=== PATIENT | female | born 1985 | race Caucasian/White ===

== ENCOUNTER 2018-01-18 05:48 | Outpatient (CLI) | payer BC ==
[~2018-01-18] VITALS: Ht 165.1 cm; Wt 89.4 kg
== END 2018-01-18 12:29 ==
LOC: PREOP 05:48
PROVIDERS: ATTEND Obstetrics & Gynecology
DX: Z01.818 Encounter for other preprocedural examination (principal); R10.2 Pelvic and perineal pain; D64.9 Anemia, unspecified

== ENCOUNTER 2018-01-22 10:58 | Day surgery (SDC) | payer BC ==
[~2018-01-22] VITALS: Ht 165.1 cm; Wt 89.4 kg
[2018-01-22] MEDS ORDERED: BUP/EPI 0.5% 1:200,000 (SENSORCAINE) 30 ML VIAL ONE (11:27)
[2018-01-22 11:30] VITALS: BP 136/78
[2018-01-22 11:42] LABS: BASOPHILS # (AUTO) 0.1 10^3/uL (0.0-0.1); BASOPHILS % (AUTO) 1 % (0-10); EOSINOPHILS # (AUTO) 0.2 10^3/uL (0.0-0.3); EOSINOPHILS % (AUTO) 1 % (0-10); HEMATOCRIT 42 % (35-52); HEMOGLOBIN 14.4 G/DL (11.5-16.0); LYMPHOCYTES # (AUTO) 3.9 X 10^3 (1.0-4.0); LYMPHOCYTES % (AUTO) 34 % (12-44); MEAN CORPUSCULAR HEMOGLOBIN 31 PG (25-34); MEAN CORPUSCULAR HGB CONC 34 G/DL (32-36); MEAN CORPUSCULAR VOLUME 91 FL (80-99); MEAN PLATELET VOLUME 9.6 FL (7.4-10.4); MONOCYTES # (AUTO) 0.7 X 10^3 (0.0-1.0); MONOCYTES % (AUTO) 6 % (0-12); NEUTROPHILS # (AUTO) 6.6 X 10^3 (1.8-7.8); NEUTROPHILS % (AUTO) 58 % (42-75); PLATELET COUNT 394 10^3/uL (130-400); RED BLOOD COUNT 4.67 10^6/uL (4.35-5.85); RED CELL DISTRIBUTION WIDTH 12.3 % (10.0-14.5); WHITE BLOOD COUNT 11.3 10^3/uL (4.3-11.0)
[2018-01-22] MEDS ORDERED: SEVOFLURANE (ULTANE) 15 ML INHAL SOLN ONE ×2 (11:45→13:56)
[2018-01-22] MEDS ORDERED: ceFAZolin INJECTION 1,000 MG in NS (IVPB) 100 ML IV ONE (11:45)
[2018-01-22] MEDS ORDERED: ROCURONIUM 10 MG/ML 5 ML SYRINGE IV ONE (11:45)
[2018-01-22] MEDS ORDERED: ONDANSETRON 4 MG/2 ML (SDV) Z0FRAN ONE (11:45)
[2018-01-22] MEDS ORDERED: DEXAMETHASONE 10 MG/ML (DECADRON) 1 ML VIAL ONE ×2 (11:45→13:56)
[2018-01-22] MEDS ORDERED: LIDOCAINE PF 2% 5 ML (XYLOCAINE) VIAL ONE (11:45)
[2018-01-22] MEDS ORDERED: proPOfol 200 MG/20 ML (DIPRIVAN) VIAL IV ONE (11:45)
[2018-01-22] MEDS ORDERED: MIDAZOLAM 2 MG/2 ML (VERSED) VIAL ONE (11:46)
[2018-01-22] MEDS ORDERED: fentaNYL INJECTION 100 MCG/2 ML AMP ONE (11:46)
--- NOTE | 2018-01-22 12:25 | Progress Note-Pre Operative ---
Pre-Operative Progress Note H&P Reviewed The H&P was reviewed, patient examined and no changes noted. Date Seen by Provider: Jan 22, 2018 Time Seen by Provider: 12:25 Date H&P Reviewed: Jan 22, 2018 Time H&P Reviewed: 12:25 Pre-Operative Diagnosis: Dysfunctional uterine bleeding/pelvic mass/ intrauterine mass LORETTA RIVERA MD Jan 22, 2018 12:25 pm
[2018-01-22] MEDS ORDERED: D5 LR IV SOLUTION 1,000 ML IV SCH (12:26)
--- NOTE | 2018-01-22 12:26 | Progress Note-Post Operative ---
Post-Operative Progess Note Surgeon (s)/Welding Equipment Sales Representative (s) Surgeon LORETTA RIVERA MD Welding Equipment Sales Representative: Gladys Mcgee Pre-Operative Diagnosis Dysfunctional uterine bleeding/pelvic mass/intrauterine mass Post-Operative Diagnosis Same with pathology pending Procedure & Operative Findings Date of Procedure 01/22/18 Procedure Performed/Findings Hysteroscopy with directed biopsy and D&C followed by laparoscopic removal of bilateral cystic adnexal masses, adhesio lysis, destruction of endometriosis, ovarian drilling Anesthesia Type GETA Estimated Blood Loss Estimated blood loss (mL): Minimal Specimens/Packing Specimens Removed Directed endometrial biopsy and D&C curettings, left paratubal/paraovarian cyst , right paratubal cyst Packing: None LOERTTA RIVERA MD Jan 22, 2018 12:26
[2018-01-22] MEDS ORDERED: OXYC-465 PO (12:29)
[2018-01-22] MEDS ORDERED: ONDANSETRON 4 MG/2 ML (SDV) Z0FRAN IVP PRN ×2 (12:30→14:00)
[2018-01-22] MEDS ORDERED: KETOROLAC 30 MG/ML VIAL IVP ONE (12:30)
[2018-01-22] MEDS ORDERED: PROMETHAZINE INJ 25 MG/ML (PHENERGAN) AMP IM ONE (12:30)
[2018-01-22] MEDS ORDERED: oxyCODONE/APAP 10/325MG (PERCOCET 10) TABLET PO PRN (12:30)
[2018-01-22] MEDS ORDERED: ESTROGENS CONJ IV 25 MG/5 ML (PREMARIN) VIAL IVP ONE (12:30)
[2018-01-22] MEDS ORDERED: MEPERIDINE (DEMEROL) INJ 100 MG/ML IM ONE (12:30)
--- NOTE | 2018-01-22 12:30 | Discharge Instructions ---
Discharge Instructions Discharge Medications New, Converted or Re-Newed RX: RX on Chart Patient Instructions Patient Instructions: As directed Return to The Hospital For: As directed Activity & Diet Discharge Diet: No Restrictions Activity as Tolerated: No Orders-Post D/C & Referrals Follow Up Appt: Call to make follow up appt. for patient in 1 week for suture removal. Activity: Rest for 24 hours, than as tolerated. Wound Care: May remove Band-Aid tomorrow. Replace as desired. Keep incisions clean and dry. Wash daily with soap and water. Diet: As tolerated-Clear Liquids only if nauseated. Tomorrow, may shower or tub bathe as desired. No driving for 24 hours, no alcoholic beverages for 24 hours, and nothing per vagina (no tampons, douching, or intercourse) for 10 days. Patient to return to the clinic as soon as possible for: Temperature greater than 101F, Severe Pain, Foul discharge from incision or vagina, Excessive Bleeding (more than a period). LORETTA RIVERA MD Jan 22, 2018 12:30 pm
[2018-01-22] MEDS: LACTATED RINGERS 1,000 ML IV PRN ×2 (12:55→14:05)
[2018-01-22] MEDS ORDERED: WATER (STERILE) FOR INJECTION 10 ML ONE (13:31)
[2018-01-22] MEDS ORDERED: morphine INJ 10 MG/ML 1ML (SYR OR VIAL) ONE ×2 (13:32→13:35)
[2018-01-22] MEDS ORDERED: NEOSTIGMINE 1 MG/ML 5 ML SYRINGE ONE (13:42)
[2018-01-22] MEDS ORDERED: GLYCOPYRROLATE 0.2 MG/ML (ROBINUL) 2 ML VIAL ONE (13:42)
[2018-01-22] MEDS ORDERED: MEPERIDINE (DEMEROL) INJ 50 MG/ML IVP PRN (14:00)
[2018-01-22] MEDS: morphine INJ 10 MG/ML 1ML (SYR OR VIAL) IVP PRN ×3 (14:05→14:20)
--- NOTE | 2018-01-22 14:26 | Anesthesia-General Post-Op ---
General Patient Condition Mental Status/LOC: Same as Preop Cardiovascular: Satisfactory Nausea/Vomiting: Absent Respiratory: Satisfactory Pain: Controlled Complications: Absent Post Op Complications Complications None Follow Up Care/Instructions Patient Instructions None needed. Anesthesia/Patient Condition Patient Condition Patient is doing well, no complaints, stable vital signs, no apparent adverse anesthesia problems. No complications reported per nursing. ISRAEL CHAWLA CRNA Jan 22, 2018 14:26
[2018-01-22] MEDS ORDERED: WATER (STERILE) FOR INJ 10 ML BTL IV ONE (14:30)
[2018-01-22 14:55] VITALS: BP 112/64
[2018-01-22 15:25] VITALS: BP 115/65
[2018-01-22 16:32] VITALS: BP 103/64
[2018-01-22 17:32] VITALS: BP 103/64
[2018-01-22 17:34] VITALS: BP 103/64
--- NOTE | 2018-01-22 22:18 | OPERATIVE REPORT ---
DATE OF SERVICE: 01/22/2018 PREOPERATIVE DIAGNOSES: Dysfunctional uterine bleeding, intrauterine mass as well as pelvic mass. POSTOPERATIVE DIAGNOSES: Dysfunctional uterine bleeding, intrauterine mass as well as pelvic mass with likely endometrial polyp and with bilateral paratubal/paraovarian cysts and with endometriosis and adhesiolysis. OPERATIVE PROCEDURE: Hysteroscopy with directed biopsy and D and C as well as bilateral paratubal/paraovarian cystectomies, adhesiolysis, destruction of endometrial implants and ovarian drilling. OPERATIVE DESCRIPTION: With the patient in supine position under satisfactory general anesthesia, she was repositioned in dorsal lithotomy position in the [facility] and prepped and draped in the usual fashion for abdominal and vaginal surgery. Urinary bladder was emptied with a straight catheter. A weighted speculum placed in posterior fornix of vagina, cervix exposed and grasped anteriorly with single tooth tenaculum. Uterus was sounded and dilated to a #9 Hegar dilator. A hysteroscope was introduced and using LR as a distending medium, the endometrial cavity was examined near the right tubal ostium. There was a polypoid appearing mass that was biopsied directly off intact and sent to pathology for permanent section. The endometrial cavity was then sharply curettaged in all 4 quadrants to good uterine cry removing an additional aliquot of tissue. The endometrial cavity was reexamined. There was no significant bleeding. There was no remaining abnormal pathology. The uterine manipulator was placed. The tenaculum and speculum were removed from vagina. A 5 mm incision made in the patient's left upper quadrant, 12 mm incision in the inferior margin of the umbilicus and a 5 mm incision above the symphysis pubis. All three incision sites were infiltrated with 0.25% Marcaine with epinephrine prior to incision. A Veress needle was placed through left upper quadrant incision. Correct placement confirmed with water drop test. The abdomen was insufflated with 2.4 liters of carbon dioxide, then the Veress needle was removed and a 5 mm Optiview laparoscopic port placed. The patient placed in Trendelenburg and a 12 mm port placed through the umbilical incision, a 5 mm port through the supraumbilical incision. The pelvis was examined, there was a large cystic mass between the ovary and the fimbria of the left fallopian tube. The left fallopian tube was stretched somewhat over this mass. The left ovary appeared completely intact and separate from this mass. There was a small cystic mass near the fimbria on the right fallopian tube. There was endometriosis implants in the cul-de-sac and at the junction of the uterosacral ligament with the uterus. The uterus was slightly mottled in appearance consistent with adenomyosis. There were adhesions of omentum to the bladder dome and to the left pelvic brim. Laparoscope was rotated. The appendix was identified. It was a normal vermiform appendix. The attention was turned back to the pelvis. The cystic mass in the left was freed from adhesions to the pelvic brim into the left pelvic side wall. With these adhesions freed and with the bowel adhesions in that area freed as well, taking care to avoid thermal or traumatic injury to bowel and to the adjacent vascular and urologic structures. The peritoneum over the cyst was opened and then the cystic mass was shelled out intact, placed in an Endobag, drained through the mouth of the bag transabdominally avoiding any spill inside and then the collapse mass could be brought out through the umbilical incision. That mass with its fluid was sent to pathology for permanent section. There was no bleeding at that area. The cystic mass on the right fallopian tube was grasped and elevated and resected using cautery and sharp dissection. Care was taken to avoid on both sides any trauma to the fallopian tubes. With cyst removed and labeled appropriately was sent to pathology for permanent section. The cul-de-sac endometriosis implants were touched with electrocautery to destroy them. Attention was then turned to the anterior cul-de-sac. There were a couple small spots that looked like endometriosis anterior to the bladder, these were destroyed with electrocautery. The pelvis was irrigated and examined. Hemostasis was complete. The left tube and ovary were examined again and were completely hemostatic. Both fallopian tubes were normal appearance. There might have been some slight clubbing on the distal ends of the fallopian tube. A second look at the appendix showed a normal vermiform appendix. The procedure at this point was complete and was terminated. The operative instruments were removed under direct vision as were the ports. The abdomen was evacuated and insufflating gas in process of removing the ports. The skin incisions were closed with interrupted suture of 3-0 nylon, the fascia at the infraumbilical incision was closed with [id number] suture of 2-0 Vicryl. The uterine manipulator was drained. Bulb was emptied and the instrument removed from the vagina. Speculum was replaced in the vagina, cervix examined for hemostasis which was complete. Sponge and needle counts were correct at the end of procedure. Estimated blood loss for the procedure was minimal. The patient tolerated the procedure well and was uneventfully awakened from general anesthesia and transferred to recovery room in stable condition with plans for discharge home PAR. Job ID: [id number] DocumentID: [id number] Dictated Date: 01/22/2018 13:43:20 Director Intelligence Analysis Programs Date: 01/22/2018 22:18:01 Dictated By: LORETTA RIVERA MD
== END 2018-01-22 17:30 | disposition home or self-care (01) ==
LOC: SDC 10:58
PROVIDERS: ATTEND Obstetrics & Gynecology
DX: N83.8 Other noninflammatory disorders of ovary, fallopian tube and broad ligament (principal); Z11.2 Encounter for screening for other bacterial diseases
CPT/HCPCS: 36415; 84703; 85025; 87081

== ENCOUNTER → 2018-08-29 | Outpatient (CLI) | payer BC ==
[~2018-08-29] MED LIST: IOHEXOL 300 MG/ML 30 ML (OMNIPAQUE 300) VIAL IV ONE; OXYC-465 PO
--- NOTE | 2018-08-29 15:44 | Diagnostic Imaging Report ---
INDICATION: Dysmenorrhea. FINDINGS: Procedure was performed by Dr. Dias. One minute and 12 seconds of fluoroscopy was utilized. Images demonstrate opacification of the endometrial canal. There appears to be free spill of contrast from the fimbrial ends of both uterine tubes. IMPRESSION: Bilateral uterine tube patency. Dictated by: Dictated on workstation # [id number]
--- NOTE | 2018-08-29 21:21 | OPERATIVE REPORT ---
DATE OF SERVICE: 08/29/2018 OPERATIVE PROCEDURE: HSG catheter placement and instillation of dye. PREOPERATIVE DIAGNOSES: Pelvic pain and endosalpingiosis. POSTOPERATIVE DIAGNOSES: Pelvic pain and endosalpingiosis with uterine septum. PROCEDURE IN DETAIL: With the patient in the supine position on the x-ray table, she was repositioned in the dorsal lithotomy position with frog-leg position. Speculum was placed in the vagina. The cervix was swabbed with Betadine and an HSG catheter was placed having first flushed the catheter with omnipaque. The balloon was then inflated with 2 mL of air. The patient was then replaced supine. The speculum was removed from the vagina. Under continuous fluoroscopy, the omnipaque was instilled. Free spill was seen on the right. Eventually, free spill was seen on the left. The balloon was deflated and the endometrial cavity was visualized by instilling the dye. In the cavity, there was a uterine septum protruding about a third of the way down the endometrial cavity. There were no other filling defects noted. The HSG catheter with the introducer was removed from the vagina. The patient was observed for an appropriate period of time for reaction to the contrast medium and then after 15 minutes was allowed discharge home with followup in clinic. Job ID: [id number] DocumentID: [id number] Dictated Date: 08/29/2018 13:35:11 Staff Therapist Date: 08/29/2018 21:20:20 Dictated By: LORETTA RIVERA MD
== END ==
LOC: RAD 12:26
PROVIDERS: ATTEND Obstetrics & Gynecology
DX: N94.6 Dysmenorrhea, unspecified (principal)
CPT/HCPCS: 58340; 74740

== ENCOUNTER → 2019-07-04 | Outpatient (CLI) | payer BC ==
[~2019-07-04] MED LIST changes: -IOHEXOL 300 MG/ML 30 ML (OMNIPAQUE 300) VIAL IV ONE; +PNV11TAB5 PO
== END ==
LOC: LABNPT 11:20
PROVIDERS: ATTEND Obstetrics & Gynecology
DX: O14.03 Mild to moderate pre-eclampsia, third trimester (principal); Z3A.00 Weeks of gestation of pregnancy not specified
CPT/HCPCS: 82570; 84156

== ENCOUNTER 2019-07-10 09:45 | Outpatient (CLI) | payer BC ==
[2019-07-10 10:43] VITALS: BP 148/77
== END 2019-07-10 10:45 | disposition home or self-care (01) ==
LOC: LDRP 09:45 → WSo 09:45
PROVIDERS: ATTEND Obstetrics & Gynecology
DX: O24.419 Gestational diabetes mellitus in pregnancy, unspecified control (principal)
CPT/HCPCS: 59025

== ENCOUNTER 2019-07-18 10:00 | Inpatient (IN) | payer BC ==
[~2019-07-18] VITALS: Ht 167.6 cm; Wt 104.3 kg
[2019-07-18] VITALS (10 sets, daily range): BP systolic 108–138; BP diastolic 62–96
--- NOTE | 2019-07-18 10:10 | NUR ---
MAMTA WALTER presented to unit via ambulation, accompanied by ,for scheduled primary c/s. Pt. weighed, gowned, voided, and to bed. EFHM and TOCO applied, VS taken. Pt. oriented to bed controls, call light, TV, heat, and A/C controls.
--- NOTE | 2019-07-18 10:20 | NUR ---
admission paperwork filled out. consent signed and placed on chart.
[2019-07-18] MEDS ORDERED: LACTATED RINGERS 1,000 ML IV PRN (10:26)
[2019-07-18] MEDS ORDERED: FAMOTIDINE 20MG/2ML IV (PEPCID) IV ONE (10:30)
[2019-07-18] MEDS ORDERED: CATHETER FLUSH 10 ML SYR IV PRN (10:30)
[2019-07-18] MEDS ORDERED: METOCLOPRAMIDE INJ 10 MG/2 ML (REGLAN) IV ONE (10:30)
[2019-07-18] MEDS ORDERED: metroNIDAZOLE 500MG/100ML IVPB 100 ML IV ONE (10:30)
[2019-07-18] MEDS ORDERED: ceFAZolin 2 GM/50 ML NS 50 ML IV ONE (10:30)
[2019-07-18] MEDS ORDERED: CITRIC ACID/SOB CIT (BICITRA) 30 ML UDC PO ONE (10:30)
--- NOTE | 2019-07-18 10:35 | NUR ---
#30g IV to Lt.hand x1 attempt by this RN. site patent, secured with opsite. LR infusing w/o via gravity. admission labs collected from site prior to IVF's infusing. Addendum: 07/18/19 at 1647 by LINUS CORTEZ RN correction #20g
[2019-07-18 10:51] LABS: BASOPHILS % (AUTO) 0 % (0-10); EOSINOPHILS # (AUTO) 0.1 10^3/uL (0.0-0.3); EOSINOPHILS % (AUTO) 1 % (0-10); HEMATOCRIT 36 % (35-52); HEMOGLOBIN 11.8 G/DL (11.5-16.0); LYMPHOCYTES # (AUTO) 2.5 X 10^3 (1.0-4.0); LYMPHOCYTES % (AUTO) 22 % (12-44); MEAN CORPUSCULAR HEMOGLOBIN 29 PG (25-34); MEAN CORPUSCULAR HGB CONC 33 G/DL (32-36); MEAN CORPUSCULAR VOLUME 88 FL (80-99); MEAN PLATELET VOLUME 10.4 FL (7.4-10.4); MONOCYTES % (AUTO) 9 % (0-12); NEUTROPHILS # (AUTO) 7.8 X 10^3 (1.8-7.8); NEUTROPHILS % (AUTO) 69 % (42-75); PLATELET COUNT 269 10^3/uL (130-400); RED CELL DISTRIBUTION WIDTH 13.4 % (10.0-14.5); WHITE BLOOD COUNT 11.5 10^3/uL (4.3-11.0)
[2019-07-18] MEDS ORDERED: OXYTOCIN/NORMAL SALINE 1,000 ML IV ONE (11:16)
[2019-07-18] MEDS ORDERED: fentaNYL INJECTION 100 MCG/2 ML AMP ONE (11:20)
[2019-07-18] MEDS ORDERED: ROPIVACAINE 5MG/ML 30ML VIAL ONE (11:23)
--- NOTE | 2019-07-18 11:31 | NUR ---
SRNA here to se peter.
--- NOTE | 2019-07-18 11:43 | History & Physical ---
History and Physical Date Seen by Provider: Jul 18, 2019 Time Seen by Provider: 11:38 This patient is a 33-year-old A1 white female with an EDC of 9 1919 patient her now at 38 weeks gestation. Her is complicated by her history of HSV. She has had asymptomatic genital lesions periodically in the past. She did request primary delivery to avoid HSV exposure her is also complicated by gestational diabetes type AI with good blood sugar control. She also has a large for gestational age fetus. Her has been complicated from earlier today with polyhydramnios. She has a high- risk OB physicians to follow her thus far recommended delivery at this point. Patient denies rupture membranes or bleeding. She had a GBS culture performed on June 28, 2019 that was positive Allergies are none Medications are vitamins and Valtrex 500 mg daily since 36 weeks gestation Medical social and surgical histories are per the antepartum record HEENT exam is normal Neck is supple no lymphadenopathy no thyromegaly Heart has regular rhythm and no murmur Chest is clear auscultation bilaterally Abdomen is gravid soft nontender nondistended. Fundal height is well above gestational age pelvic exam is deferred monitor shows frequent uterine irritability with an occasional contraction and a normal heart rate pattern Laboratory Tests Test 07/18/19 10:35 Range/Units White Blood Count 11.5 H 4.3-11.0 10^3/uL Red Blood Count 4.05 L 4.35-5.85 10^6/uL Hemoglobin 11.8 11.5-16.0 G/DL Hematocrit 36 35-52 % Mean Corpuscular Volume 88 80-99 FL Mean Corpuscular Hemoglobin 29 25-34 PG Mean Corpuscular Hemoglobin Concent 33 32-36 G/DL Red Cell Distribution Width 13.4 10.0-14.5 % Platelet Count 269 130-400 10^3/uL Mean Platelet Volume 10.4 7.4-10.4 FL Neutrophils (%) (Auto) 69 42-75 % Lymphocytes (%) (Auto) 22 12-44 % Monocytes (%) (Auto) 9 0-12 % Eosinophils (%) (Auto) 1 0-10 % Basophils (%) (Auto) 0 0-10 % Neutrophils # (Auto) 7.8 1.8-7.8 X 10^3 Lymphocytes # (Auto) 2.5 1.0-4.0 X 10^3 Monocytes # (Auto) 1.0 0.0-1.0 X 10^3 Eosinophils # (Auto) 0.1 0.0-0.3 10^3/uL Basophils # (Auto) 0.0 0.0-0.1 10^3/uL Assessment and plan term at 38 weeks gestation with history of genital herpes, polyhydramnios, macrosomia/LGA, gestational diabetes, and request for primary delivery. I do agree with primary delivery for this patient in regard to the estimated gestational weight as well as her history of genital herpes with asymptomatic lesions. Surgical risk complication recovering follow-up have been fully discussed patient is ready to proceed and accepts those risks. 38 week with history of HSV genitalias gestational diabetes and macrosomia polyhydramnios Allergies and Home Medications Allergies Coded Allergies: No Known Drug Allergies (Unverified , 07/05/19) Home Medications Qkl442/FA/Omega3/Dha/Fish Oil 1 Each Tab.chew, 1 EACH PO DAILY, (Reported) Patient Home Medication List Home Medication List Reviewed: Yes LORETTA RIVERA MD Jul 18, 2019 11:42
[2019-07-18] MEDS ORDERED: OXYC-465 PO (11:45)
[2019-07-18] MEDS ORDERED: DOCU-143 PO (11:45)
[2019-07-18] MEDS ORDERED: IBUP-1780 PO (11:45)
--- NOTE | 2019-07-18 11:45 | Discharge Instructions ---
Discharge Instructions Reconcile Patient Problems Problems Reviewed?: Yes Discharge Medications New, Converted or Re-Newed RX: RX on Chart Patient Instructions Patient Instructions: As directed Return to The Hospital For: As directed Activity & Diet Discharge Diet: No Restrictions Activity as Tolerated: No Orders-Post D/C & Referrals Follow Up Appt: RTC 1 week for incision check. Call to make follow up appt. for patient in 4 weeks. Wound Care: Remove eloina, apply benzoin and steri strips. Activity Per routine post instructions. Please call in RX to patient pharmacy. Diet as tolerated Patient may shower or tub bathe as desired. Continue home meds LORETTA RIVERA MD Jul 18, 2019 11:45
--- NOTE | 2019-07-18 11:50 | NUR ---
pt ambulated to OB c/s room with OR staff @ side. pt stable with no sx's of distress noted.
[2019-07-18] MEDS ORDERED: ONDANSETRON 4 MG/2 ML (SDV) Z0FRAN ONE (12:21)
[2019-07-18] MEDS ORDERED: PHENYLEPHRINE 100 MCG/ML 10 ML (ANESTHESIA) SYR ONE (12:21)
[2019-07-18] MEDS: OXYTOCIN/NORMAL SALINE 500 ML IV SCH ×2 (12:42→18:00)
[2019-07-18] MEDS ORDERED: KETOROLAC 30 MG/ML VIAL ONE (12:46)
[2019-07-18] MEDS ORDERED: D5 LR IV SOLUTION 1,000 ML IV SCH (12:47)
[2019-07-18] MEDS: KETOROLAC 30 MG/ML VIAL IVP PRN ×2 (12:55→18:00)
[2019-07-18] MEDS ORDERED: MEASLES,MUMPS,RUBELLA 1 EA INJ SC ONE (13:00)
[2019-07-18] MEDS ORDERED: TETANUS,DIPTH,PERTUSS P/F (BOOSTRIX) 0.5 ML VIAL IM ONE (13:00)
[2019-07-18] MEDS ORDERED: oxyCODONE/APAP 10/325MG (PERCOCET 10) TABLET PO PRN (13:00)
[2019-07-18] MEDS ORDERED: ONDANSETRON 4 MG/2 ML (SDV) Z0FRAN IVP PRN (13:00)
--- NOTE | 2019-07-18 13:40 | NUR ---
pt transferred to nursery for bonding with infant prior to transfer to [facility].
--- NOTE | 2019-07-18 14:30 | NUR ---
pt transferred to room 313 via bed with staff @ side.
--- NOTE | 2019-07-18 14:52 | OPERATIVE REPORT ---
DATE OF SERVICE: 07/18/2019 PREOPERATIVE DIAGNOSES: Term at 38 weeks gestation with gestational diabetes, history of genital herpes, polyhydramnios and LGA. POSTOPERATIVE DIAGNOSES: Term at 38 weeks gestation with gestational diabetes, history of genital herpes, polyhydramnios and LGA. OPERATIVE PROCEDURE: Primary low transverse delivery of a viable male with Apgars that are pending, weight of 9 pounds, time of 12:18 and a cord blood gas of 7.22. OPERATIVE DESCRIPTION: With the patient in the supine position under satisfactory spinal analgesia, she was prepped and draped in the usual fashion for abdominal surgery. Jeong catheter was placed in the urinary bladder. A Pfannenstiel incision was made through skin with scalpel. The patient's abdomen was entered in the usual manner. Bladder retractor was placed in position. Clean scalpel was used to make a hysterotomy incision transversely across the lower uterine segment. Copious clear fluid was released on hysterotomy. That incision was extended bluntly and then a vigorous viable male infant was delivered via the uterine incision. Odom forceps were applied to facilitate the delivery. The infant was bulb suctioned on delivery of the head and again on completion of the delivery. The umbilical cord was doubly clamped and cut and the infant was passed to the pediatric nurse in attendance for delivery. Cord blood was obtained. The placenta delivered spontaneously Breen. It was quite large. The uterus was then exteriorized, anteriorly wiped clean with a wet laparotomy sponge. Uterine incision then closed with a running locked suture of 2-0 Vicryl. Hemostasis was complete. The uterus was returned to the abdominal cavity. All blood clot and debris removed from the abdominal cavity. With sponge and needle counts correct and hemostasis assured, the anterior parietal peritoneum was closed with running suture of 2-0 Vicryl. Rectus muscles were closed with that suture as well. The rectus fascia was closed with 2-0 Vicryl, subcutaneous tissue with 2-0 Vicryl and the skin was stapled. Sponge and needle counts were correct on completion of the procedure. Estimated blood loss was around 400 mL. The patient tolerated the procedure well and was transferred to the recovery room in stable condition. The infant had been taken stable to the full term nursery under the care of the pediatric nurse. Job ID: [id number] DocumentID: [id number] Dictated Date: 07/18/2019 12:36:59 Second Hand Paper Machine Date: 07/18/2019 14:50:48 Dictated By: LORETTA RIVERA MD
--- NOTE | 2019-07-18 16:01 | NUR ---
FFu/1. moderate rubra noted, no clots expressed. gabby-care offered. v-pad and panties in place.
--- NOTE | 2019-07-18 18:30 | NUR ---
Assisted up to BR. voided 200cc urine. gabby-care offered. v-pad and panties in place. assisted back to bed. visitor here.
--- NOTE | 2019-07-18 19:00 | NUR ---
report given to next shift.
[2019-07-18] MEDS: IBUPROFEN 800 MG (MOTRIN) TAB PO SCH (20:32)
[2019-07-18] MEDS: DOCUSATE SODIUM 100 MG (COLACE) CAP PO SCH (21:02)
[2019-07-18] MEDS ORDERED: D5 LR IV SOLUTION 1,000 ML IV ONE (23:59)
[2019-07-19 00:10] VITALS: BP 148/98
[2019-07-19] MEDS: KETOROLAC 30 MG/ML VIAL IVP PRN ×2 (00:10→07:23)
[2019-07-19] MEDS: IBUPROFEN 800 MG (MOTRIN) TAB PO SCH (02:16)
[2019-07-19 05:00] VITALS: BP 154/93
--- NOTE | 2019-07-19 07:45 | NUR ---
Dr omer to see patient.
--- NOTE | 2019-07-19 07:51 | Progress Note ---
Standard Progress Note Progress Notes/Assess & Plan Date Seen by a Provider: Jul 19, 2019 Time Seen by a Provider: 07:50 Progress/Assessment & Plan This patient is without complaint. Ambulating, voiding, tolerating oral intake well and has good pain control. She denies chest pain, denies shortness of breath, denies nausea vomiting, and denies headache. She does complain of some sinus drainage and sore throat. Vital Signs Date Time Temp Pulse Resp B/P (MAP) Pulse Ox O2 Delivery O2 Flow Rate FiO2 07/19/19 05:00 98.4 102 18 154/93 (113) 98 Room Air 07/19/19 00:10 99.0 103 18 148/98 (115) 98 Room Air 07/18/19 19:45 98.0 99 18 134/86 (102) 96 Room Air 07/18/19 16:30 Room Air 07/18/19 15:40 97.7 98 18 137/85 (102) 99 Room Air 07/18/19 13:30 96.9 18 96 Room Air 07/18/19 13:30 Room Air 07/18/19 13:18 Room Air 07/18/19 13:18 96.6 18 97 Room Air 07/18/19 13:02 Room Air 07/18/19 13:02 97.7 18 96 Room Air 07/18/19 12:42 Room Air 07/18/19 12:42 98.0 18 95 Room Air 07/18/19 11:25 99 18 123/70 (87) Room Air 07/18/19 11:10 99 18 130/80 (97) Room Air 07/18/19 10:40 93 18 110/64 (79) Room Air 07/18/19 10:15 98.5 116 18 138/96 (110) Room Air I & O 07/19/19 07:00 Intake Total 2770 ml Output Total 500 ml Balance 2270 ml Vital signs are stable. Patient is afebrile. Abdomen is benign. The surgical incision is clean dry and intact. Fundus is firm below the umbilicus. Extremities show no clubbing cyanosis. There is no Homans sign. There is minimal pretibial pitting edema. Assessment and plan postoperative day number 1 status post primary delivery doing well. Plan is for discharge home as her baby has been transferred to [facility] NICU. She reports that baby is doing well there. Final Diagnosis 38 week primary delivery LORETTA RIVERA MD Jul 19, 2019 07:51
[2019-07-19] MEDS ORDERED: PSEU-137 PO (07:53)
[2019-07-19] MEDS ORDERED: PSEUDOEPHEDRINE HCL 30 MG (SUDAFED) TAB PO PRN (08:00)
[2019-07-19] MEDS: DOCUSATE SODIUM 100 MG (COLACE) CAP PO SCH (09:17)
[2019-07-19 09:20] VITALS: BP 142/79
[2019-07-19] MEDS ORDERED: TETANUS,DIPTH,PERTUSS P/F (BOOSTRIX) 0.5 ML VIAL IM ONE (10:44)
--- NOTE | 2019-07-19 11:05 | NUR ---
Discharge instructions explained, signed and copy to pt. pt verbalized understanding of instructions and denied questions. prescriptions called to pharmacy and given to pt.
--- NOTE | 2019-07-19 11:30 | NUR ---
Discharged to home with belongings. Downstairs in wheelchair accompanied by rn. to private vehicle.
--- NOTE | 2019-07-19 14:35 | Anesthesia-Regional Post-Op ---
Regional Patient Condition Mental Status: Alert, Oriented x3 Circulation: Same as Pre-Op Headache: Absent Sensation: Full Recovery Motor Block: Absent Post Op Complications Complications None Follow Up Care/Instructions Patient Instructions None needed. Anesthesia/Patient Condition Patient is already D/C to home to go to [facility], where her baby was transferred. She was seen this morning by LUIGI Macias and was doing well. KAYLEIGH ALVES DO Jul 19, 2019 14:35
== END 2019-07-19 11:25 | disposition home or self-care (01) | DRG 788 ==
LOC: LDRP 10:00
PROVIDERS: ADMIT Obstetrics & Gynecology; ATTEND Obstetrics & Gynecology
PROC: 10D00Z1 Extraction of Products of Conception, Low, Open Approach (ICD-10-PCS; principal; 2019-07-18 11:50)
DX: O98.32 Other infections with a predominantly sexual mode of transmission complicating childbirth (principal); A60.09 Herpesviral infection of other urogenital tract; O24.429 Gestational diabetes mellitus in childbirth, unspecified control; O40.3XX0 Polyhydramnios, third trimester, not applicable or unspecified; O99.824 Streptococcus B carrier state complicating childbirth; Z3A.38 38 weeks gestation of pregnancy; Z37.0 Single live birth; Z87.891 Personal history of nicotine dependence; Z23 Encounter for immunization
CPT/HCPCS: 36415; 85025; 86850; 86900; 86901; 88307; 90715; 94664

== ENCOUNTER → 2021-12-13 | Outpatient (CLI) | payer BC ==
[~2021-12-13] MED LIST changes: +DOCU-143 PO; +IBUP-1780 PO; -OXYC-465 PO; +OXYC-556 PO; +PSEU-182 PO
--- NOTE | 2021-12-13 11:09 | Diagnostic Imaging Report ---
INDICATION: survey. TECHNIQUE: Multiple Real-time grayscale images were obtained over the gravid uterus. COMPARISON: None. FINDINGS: There is a single live fetus in a transverse presentation with the head to the maternal left. The heart rate was recorded at 163 BPM. The placenta is posterior. No previa is identified. The amniotic fluid volume is normal. The cervical length is 4.7 cm. The kidneys, bladder, and stomach are unremarkable. The brain is unremarkable. There is a four-chamber heart. There is a three-vessel cord with normal insertion. The spine evaluation is somewhat limited due to position. Biometrical measurements are as follows: Biparietal 4.51 cm, age 19 weeks 5 days. Head circumference 17.20 cm, age 19 weeks 6 days. Abdominal circumference 14.12 cm, age 19 weeks 4 days. Femur length 3.14 cm, age 19 weeks 6 days. Sonographic estimate age: 19 weeks 6 days. Sonographic estimated date of delivery: 05/03/2022. Estimated Weight: 304 gm (+/- 44 gm). LMP percentile: 33%. heart rate: 163 beats per minute. number: 1 of 1. IMPRESSION: Single live IUP measuring 19 weeks 6 days gestational age with an estimated date of confinement sonographically of 05/03/2022. The survey was unremarkable although the spine evaluation was somewhat limited due to position. Dictated by: Dictated on workstation # [id number]
== END ==
LOC: RAD 09:51
PROVIDERS: ATTEND Nurse Practitioner Women's Health
DX: Z34.02 Encounter for supervision of normal first pregnancy, second trimester (principal); Z3A.19 19 weeks gestation of pregnancy
CPT/HCPCS: 76805

== ENCOUNTER → 2022-04-05 | Outpatient (CLI) | payer BC | LOC: LABNPT 16:27 | PROVIDERS: ATTEND Obstetrics & Gynecology | DX: O14.93 Unspecified pre-eclampsia, third trimester (principal) | CPT/HCPCS: 82570; 84156 ==

== ENCOUNTER → 2022-04-13 | Outpatient (CLI) | payer BC ==
[2022-04-13 12:43] LABS: URINE CREATININE FOR RATIO 25 MG/DL (30-125)
[2022-04-13 12:44] LABS: URINE PROTEIN FOR RATIO ONLY < 6 MG/DL (6-12)
== END ==
LOC: LABNPT 12:17
PROVIDERS: ATTEND Obstetrics & Gynecology
DX: O13.9 Gestational [pregnancy-induced] hypertension without significant proteinuria, unspecified trimester (principal); Z3A.00 Weeks of gestation of pregnancy not specified
CPT/HCPCS: 82570; 84156

== ENCOUNTER 2022-04-19 05:29 | Outpatient (CLI) | payer BC | END 2022-04-19 14:28 | disposition home or self-care (01) | LOC: PREOP 05:29 | PROVIDERS: ATTEND Obstetrics & Gynecology | DX: Z01.818 Encounter for other preprocedural examination (principal) ==

== ENCOUNTER 2022-04-19 14:12 | Inpatient (IN) | payer BC ==
[~2022-04-19] VITALS: Ht 167.6 cm; Wt 101.6 kg
[2022-04-19] VITALS (13 sets, daily range): BP systolic 130–161; BP diastolic 78–97
[2022-04-19] MEDS ORDERED: MINERAL OIL 30 ML TOP PRN (14:30)
[2022-04-19] MEDS: D5 LR IV SOLUTION 1,000 ML IV SCH (15:18)
[2022-04-19 15:50] LABS: BASOPHILS % (AUTO) 0 % (0-10); EOSINOPHILS # (AUTO) 0.1 10^3/uL (0.0-0.3); EOSINOPHILS % (AUTO) 0 % (0-10); HEMATOCRIT 33 % (35-52); HEMOGLOBIN 10.6 g/dL (11.5-16.0); LYMPHOCYTES # (AUTO) 2.8 X 10^3 (1.0-4.0); LYMPHOCYTES % (AUTO) 24 % (12-44); MEAN CORPUSCULAR HEMOGLOBIN 29 pg (25-34); MEAN CORPUSCULAR HGB CONC 32 g/dL (32-36); MEAN CORPUSCULAR VOLUME 88 fL (80-99); MEAN PLATELET VOLUME 10.7 fL (9.0-12.2); MONOCYTES # (AUTO) 0.9 X 10^3 (0.0-1.0); MONOCYTES % (AUTO) 8 % (0-12); NEUTROPHILS # (AUTO) 7.4 X 10^3 (1.8-7.8); NEUTROPHILS % (AUTO) 65 % (42-75); PLATELET COUNT 313 10^3/uL (130-400); WHITE BLOOD COUNT 11.5 10^3/uL (4.3-11.0)
--- NOTE | 2022-04-19 19:14 | History & Physical ---
History and Physical Date Seen by Provider: Apr 19, 2022 Time Seen by Provider: 19:10 This patient is a 36-year-old white female currently at 38 weeks gestation who was seen in my office today and found with elevated blood pressure in the 160 over high 80s. Preeclampsia lab work was obtained and urine protein creatinine ratio was returned as 0.5. Patient was advised to come to labor and delivery due to preeclampsia with possible severe features. Patient denied rupture membranes or bleeding. She has had 2 previous C-sections and is planning repeat . Patient's GBS culture was negative. Allergies are none Medications are vitamins Medical social and surgical histories are per the antepartum record HEENT exam is normal Neck is supple no lymphadenopathy no thyromegaly Abdomen is gravid soft nontender nondistended Extremities show no clubbing or cyanosis. There is no Homans' sign. Laboratory Tests Test 04/19/22 15:14 Range/Units White Blood Count 11.5 H 4.3-11.0 10^3/uL Red Blood Count 3.70 L 3.80-5.11 10^6/uL Hemoglobin 10.6 L 11.5-16.0 g/dL Hematocrit 33 L 35-52 % Mean Corpuscular Volume 88 80-99 fL Mean Corpuscular Hemoglobin 29 25-34 pg Mean Corpuscular Hemoglobin Concent 32 32-36 g/dL Red Cell Distribution Width 13.8 10.0-14.5 % Platelet Count 313 130-400 10^3/uL Mean Platelet Volume 10.7 9.0-12.2 fL Immature Granulocyte % (Auto) 2 % Neutrophils (%) (Auto) 65 42-75 % Lymphocytes (%) (Auto) 24 12-44 % Monocytes (%) (Auto) 8 0-12 % Eosinophils (%) (Auto) 0 0-10 % Basophils (%) (Auto) 0 0-10 % Neutrophils # (Auto) 7.4 1.8-7.8 X 10^3 Lymphocytes # (Auto) 2.8 1.0-4.0 X 10^3 Monocytes # (Auto) 0.9 0.0-1.0 X 10^3 Eosinophils # (Auto) 0.1 0.0-0.3 10^3/uL Basophils # (Auto) 0.0 0.0-0.1 10^3/uL Immature Granulocyte # (Auto) 0.3 H 0.0-0.1 10^3/uL Assessment and plan 38-week gestation the patient with currently mild preeclampsia with borderline severe features. Her pressures have been in the 160s although since presentation her pressures have been running under 160 systolic and under 110 diastolic. Plan at this point is observation as patient has eaten today with n.p.o. after midnight and plans for delivery tomorrow. Surgery schedule does not allow access to a room and improved early in the morning we will plan for C- section for noon provided patient remained stable. Should she advertise features of severe preeclampsia we would proceed with delivery thanPatient is found to be chantelle about every 3 to 4 minutes if this progresses to early labor then we would proceed with delivery as well 38 weeks gestation with preeclampsia borderline severe Allergies and Home Medications Allergies Coded Allergies: No Known Drug Allergies (Unverified , 07/05/19) Patient Home Medication List Home Medication List Reviewed: Yes Docusate Sodium (Colace) 100 Mg Capsule, 100 MG PO BID Prescribed by: LORETTA ZHANG on 07/18/19 1145 Ibuprofen (Ibuprofen) 800 Mg Tablet, 800 MG PO Q6H PRN for PAIN Prescribed by: LORETTA ZHANG on 07/18/19 1145 Oxycodone HCl/Acetaminophen (Oxycodone-Acetaminophen 10-325) 1 Each Tablet, 1 TAB PO Q4H PRN for PAIN-MODERATE Prescribed by: LORETTA ZHANG on 07/18/19 1145 Ase440/FA/Omega3/Dha/Fish Oil ( Gummies) 1 Each Tab.chew, 1 EACH PO DAILY, (Reported) Entered as Reported by: ANGELIQUE ABBASI on 07/05/19 1209 Pseudoephedrine HCl (Sudafed) 30 Mg Tablet, 30 MG PO Q6H Prescribed by: LORETTA ZHANG on 07/19/19 0753 LORETTA RIVERA MD Apr 19, 2022 19:14
--- NOTE | 2022-04-19 19:24 | Discharge Inst-Surgical ---
Discharge Inst-Surgical Depart Medication/Instructions New, Converted or Re-Newed RX: Transmitted to Pharmacy Consults/Follow Up Patient Instructions: As directed Orders & Referrals Follow Up Appt: RTC 1 week for incision check. Call to make follow up appt. for patient in 4 weeks. Wound Care: Remove eloina, apply benzoin and steri strips. Activity Per routine post instructions. Prescription for this patient have been sent to her pharmacy from my clinic Diet as tolerated Patient may shower or tub bathe as desired. Continue home meds Activity Activity as Tolerated: No Diet Discharge Diet: No Restrictions LORETTA RIVERA MD Apr 19, 2022 19:24
[2022-04-19] MEDS: CATHETER FLUSH 10 ML SYR IV SCH (22:23)
[2022-04-20] VITALS (20 sets, daily range): BP systolic 100–145; BP diastolic 53–92
[2022-04-20] MEDS: D5 LR IV SOLUTION 1,000 ML IV SCH (04:30)
[2022-04-20 05:49] LABS: BASOPHILS # (AUTO) 0.1 10^3/uL (0.0-0.1); BASOPHILS % (AUTO) 0 % (0-10); EOSINOPHILS # (AUTO) 0.1 10^3/uL (0.0-0.3); EOSINOPHILS % (AUTO) 1 % (0-10); HEMATOCRIT 33 % (35-52); HEMOGLOBIN 10.4 g/dL (11.5-16.0); LYMPHOCYTES # (AUTO) 3.3 10^3/uL (1.0-4.0); LYMPHOCYTES % (AUTO) 27 % (12-44); MEAN CORPUSCULAR HEMOGLOBIN 28 pg (25-34); MEAN CORPUSCULAR HGB CONC 32 g/dL (32-36); MEAN CORPUSCULAR VOLUME 89 fL (80-99); MEAN PLATELET VOLUME 10.4 fL (9.0-12.2); MONOCYTES # (AUTO) 0.9 10^3/uL (0.0-1.0); MONOCYTES % (AUTO) 8 % (0-12); NEUTROPHILS # (AUTO) 7.4 10^3/uL (1.8-7.8); NEUTROPHILS % (AUTO) 62 % (42-75); PLATELET COUNT 265 10^3/uL (130-400)
[2022-04-20 05:57] LABS: POTASSIUM 3.7 MMOL/L (3.6-5.0)
[2022-04-20 05:59] LABS: CALCIUM 8.5 MG/DL (8.5-10.1)
[2022-04-20 06:00] LABS: TOTAL PROTEIN 6.3 GM/DL (6.4-8.2)
[2022-04-20 06:02] LABS: BILIRUBIN,TOTAL 0.2 MG/DL (0.1-1.0)
[2022-04-20 06:03] LABS: CREATININE SERUM 0.54 MG/DL (0.60-1.30)
[2022-04-20] MEDS: CATHETER FLUSH 10 ML SYR IV SCH ×2 (06:15→14:45)
[2022-04-20] MEDS ORDERED: ceFAZolin INJECTION 2,000 MG in NS (IVPB) 50 ML IV ONE (11:00)
[2022-04-20] MEDS ORDERED: METOCLOPRAMIDE INJ 10 MG/2 ML (REGLAN) IV ONE (11:00)
[2022-04-20] MEDS ORDERED: CITRIC ACID/SOB CIT (BICITRA) 30 ML UDC PO ONE (11:00)
[2022-04-20] MEDS ORDERED: metroNIDAZOLE 500MG/100ML IVPB 100 ML IV ONE (11:00)
[2022-04-20] MEDS ORDERED: FAMOTIDINE 20MG/2ML IV (PEPCID) IV ONE (11:00)
[2022-04-20] MEDS ORDERED: fentaNYL INJ 100 MCG/2 ML AMP ONE (11:42)
[2022-04-20] MEDS ORDERED: OXYTOCIN PRE-MIX DRIP 1,000 ML IV ONE (11:42)
[2022-04-20] MEDS: LACTATED RINGERS 1,000 ML IV PRN ×2 (11:47→12:35)
[2022-04-20] MEDS ORDERED: ceFAZolin INJECTION 1,000 MG ONE (12:49)
[2022-04-20] MEDS ORDERED: PHENYLEPHRINE 100 MCG/ML 10 ML (ANESTHESIA) SYR ONE (12:52)
[2022-04-20] MEDS ORDERED: BUPIVACAINE 0.5% 30 ML (SENSORCAINE) VIAL ONE (13:09)
[2022-04-20] MEDS ORDERED: TETANUS,DIPTH,PERTUSS P/F (BOOSTRIX) 0.5 ML VIAL IM ONE (14:30)
[2022-04-20] MEDS ORDERED: fentaNYL INJ 100 MCG/2 ML AMP IVP PRN (14:30)
[2022-04-20] MEDS ORDERED: D5 LR IV SOLUTION 1,000 ML IV SCH (14:30)
[2022-04-20] MEDS ORDERED: ONDANSETRON 4 MG/2 ML (SDV) Z0FRAN IVP PRN (14:30)
[2022-04-20] MEDS: KETOROLAC 30 MG/ML VIAL IVP SCH ×2 (15:09→20:43)
[2022-04-20] MEDS: OXYTOCIN PRE-MIX DRIP 500 ML IV SCH (15:20)
[2022-04-20] MEDS: oxyCODONE/APAP 10/325MG (PERCOCET 10) TABLET PO PRN (20:03)
[2022-04-20] MEDS: DOCUSATE SODIUM 100 MG (COLACE) CAP PO SCH (20:43)
[2022-04-20] MEDS ORDERED: DOCUSATE SODIUM 100 MG (COLACE) CAP PO SCH (21:00)
--- NOTE | 2022-04-20 22:57 | OPERATIVE REPORT ---
DATE OF SERVICE: 04/20/2022 PREOPERATIVE DIAGNOSIS: Term at 38 weeks gestation with preeclampsia and polyhydramnios. POSTOPERATIVE DIAGNOSIS: Term at 38 weeks gestation with preeclampsia and polyhydramnios. OPERATIVE PROCEDURE: Repeat low transverse delivery of a viable male infant with Apgars of 8 and 9 at 1 and 5 minutes respectively, weight of 8 pounds 2 ounces, time of 12:55 and a cord blood pH of 7.30. OPERATIVE DESCRIPTION: With the patient in the supine position under satisfactory spinal analgesia, the patient was prepped and draped in the usual fashion for abdominal surgery. Jeong catheter was placed in the urinary bladder. A repeat Pfannenstiel incision was made through skin with scalpel, the patient's abdomen was entered in the usual manner. Bladder retractor placed in position. Clean scalpel used to make a 4 cm hysterotomy incision transversely across the lower uterine segment that was extended by blunt dissection as well. Copious clear fluid was released on hysterotomy. Odom forceps were applied to facilitate delivery of a vigorous viable male . had Apgars and stats as noted above. The was bulb suctioned on delivery of the head and again on completion of delivery. Umbilical cord was doubly clamped and cut, and the passed to the pediatric nurse in attendance for delivery. Cord bloods were obtained and the placenta delivered spontaneously Breen. It was sent to pathology for permanent section. It was normal with a 3-vessel cord. The uterus was exteriorized down the anterior wiped clean with a wet laparotomy sponge. Uterine incision closed with a running locked suture of 2-0 Vicryl. Hemostasis was complete. The uterus was returned to the abdominal cavity. All blood clot and debris removed from the abdominal cavity. With sponge, needle counts correct, hemostasis assured. Anterior parietal peritoneum was closed with running suture of 2-0 Vicryl. Rectus muscles were closed with that suture as well. The rectus fascia was closed with 2-0 Vicryl, subcutaneous tissue was closed with 2-0 Vicryl and the skin was stapled. Sponge and needle counts were correct on completion of the procedure. Blood loss was around 500 mL. The patient tolerated the procedure well and was transferred to recovery in stable condition. The had been taken stable to the full term nursery under the care of the pediatric nurse in attendance. Job ID: [id number] DocumentID: [id number] Dictated Date: 04/20/2022 14:31:16 Grinder Outside Diameter Date: 04/20/2022 22:56:57 Dictated By: LORETTA RIVERA MD MTDD
[2022-04-21 01:13] VITALS: BP 138/83
[2022-04-21] MEDS: KETOROLAC 30 MG/ML VIAL IVP SCH (03:12)
[2022-04-21] MEDS ORDERED: IBUPROFEN 800 MG (MOTRIN) TAB PO ONE (03:16)
[2022-04-21] MEDS: IBUPROFEN 800 MG (MOTRIN) TAB PO SCH ×4 (03:17→23:05)
[2022-04-21] MEDS: oxyCODONE/APAP 10/325MG (PERCOCET 10) TABLET PO PRN ×3 (03:17→23:05)
[2022-04-21] MEDS ORDERED: MEASLES,MUMPS,RUBELLA 1 EA INJ ONE (05:17)
[2022-04-21 05:26] VITALS: BP 115/66
[2022-04-21] MEDS ORDERED: MEASLES,MUMPS,RUBELLA 1 EA INJ SC ONE (05:30)
[2022-04-21] MEDS: DOCUSATE SODIUM 100 MG (COLACE) CAP PO SCH ×2 (11:06→20:31)
[2022-04-21 11:10] VITALS: BP 137/79
[2022-04-21] MEDS: OXYTOCIN PRE-MIX DRIP 500 ML IV SCH (11:55)
[2022-04-21] MEDS: D5 LR IV SOLUTION 1,000 ML IV SCH ×3 (11:56→19:48)
[2022-04-21] MEDS: CATHETER FLUSH 10 ML SYR IV SCH ×4 (11:56→21:56)
--- NOTE | 2022-04-21 12:14 | Progress Note ---
Standard Progress Note Progress Notes/Assess & Plan Date Seen by a Provider: Apr 21, 2022 Time Seen by a Provider: 12:13 Progress/Assessment & Plan This patient is without complaint. She is ambulating, voiding, tolerating oral intake well and has good pain control. Vital Signs Date Time Temp Pulse Resp B/P (MAP) Pulse Ox O2 Delivery O2 Flow Rate FiO2 04/21/22 11:10 35.9 91 18 137/79 (98) 98 Room Air 04/21/22 05:26 36.4 95 18 115/66 (82) 97 Room Air 04/21/22 01:13 36.4 99 16 138/83 (101) 98 Room Air 04/20/22 20:50 36.5 99 18 145/82 (103) 99 Room Air 04/20/22 14:30 36.1 88 18 132/83 (99) 99 Room Air 04/20/22 14:05 Room Air 04/20/22 14:00 36.5 20 125/75 (92) 97 Room Air 04/20/22 13:50 17 115/71 (86) 97 Room Air 04/20/22 13:45 Room Air 04/20/22 13:40 17 120/61 (80) 96 Room Air 04/20/22 13:30 17 107/53 (71) 97 Room Air 04/20/22 13:30 Room Air 04/20/22 13:16 Room Air 04/20/22 13:16 36.9 18 100/78 (85) 98 Room Air 04/20/22 12:20 104 18 134/81 (98) Room Air I & O 04/21/22 07:00 Intake Total 2700 ml Output Total 1300 ml Balance 1400 ml Vital signs are stable blood pressure is normalizing. Patient is afebrile. The abdomen is benign. The surgical incision is clean dry and intact. Fundus is firm below the umbilicus and nontender. Extremities show no clubbing or cyanosis. There is no Homans' sign. Assessment and plan Postoperative day 1 status post repeat delivery for labor andSevere preeclampsia. Plan is for routine convalescent care LORETTA RIVERA MD Apr 21, 2022 12:14
[2022-04-21 17:23] VITALS: BP 141/90
[2022-04-21 23:03] VITALS: BP 132/73
[2022-04-22] MEDS: D5 LR IV SOLUTION 1,000 ML IV SCH (01:00)
[2022-04-22 05:04] VITALS: BP 125/75
[2022-04-22] MEDS: IBUPROFEN 800 MG (MOTRIN) TAB PO SCH ×2 (05:06→10:02)
[2022-04-22] MEDS: CATHETER FLUSH 10 ML SYR IV SCH (06:22)
--- NOTE | 2022-04-22 08:34 | Progress Note ---
Standard Progress Note Progress Notes/Assess & Plan Date Seen by a Provider: Apr 22, 2022 Time Seen by a Provider: 08:34 Progress/Assessment & Plan This patient is without complaint. She is ambulating, voiding, tolerating oral intake well and has good pain control. Vital Signs Date Time Temp Pulse Resp B/P (MAP) Pulse Ox O2 Delivery O2 Flow Rate FiO2 04/21/22 11:10 35.9 91 18 137/79 (98) 98 Room Air 04/21/22 05:26 36.4 95 18 115/66 (82) 97 Room Air 04/21/22 01:13 36.4 99 16 138/83 (101) 98 Room Air 04/20/22 20:50 36.5 99 18 145/82 (103) 99 Room Air 04/20/22 14:30 36.1 88 18 132/83 (99) 99 Room Air 04/20/22 14:05 Room Air 04/20/22 14:00 36.5 20 125/75 (92) 97 Room Air 04/20/22 13:50 17 115/71 (86) 97 Room Air 04/20/22 13:45 Room Air 04/20/22 13:40 17 120/61 (80) 96 Room Air 04/20/22 13:30 17 107/53 (71) 97 Room Air 04/20/22 13:30 Room Air 04/20/22 13:16 Room Air 04/20/22 13:16 36.9 18 100/78 (85) 98 Room Air 04/20/22 12:20 104 18 134/81 (98) Room Air I & O 04/21/22 07:00 Intake Total 2700 ml Output Total 1300 ml Balance 1400 ml Vital signs are stable blood pressure is normalizing. Patient is afebrile. The abdomen is benign. The surgical incision is clean dry and intact. Fundus is firm below the umbilicus and nontender. Extremities show no clubbing or cyanosis. There is no Homans' sign. Assessment and plan Postoperative day 1 status post repeat delivery for labor andSevere preeclampsia. Plan is for routine convalescent care Kj 08/2022 See discharge summary LORETTA RIVERA MD Apr 22, 2022 08:34
--- NOTE | 2022-04-22 08:37 | Discharge Summary ---
Discharge Summary 38-week repeat delivery This patient is a 36-year-old female who was admitted at 38 weeks gestation due to preeclampsia. She was at 38 weeks gestation and had 2 previous C-sections. She was admitted observed overnight and then taken to the operating room for repeat delivery the following day. That procedure was uncomplicated. On postoperative day #1 patient was ambulating, voiding, tolerating oral intake and had good pain control. Her blood pressures have begun normalizing. She had routine care through the day. Now postoperative day #2 patient again is ambulating, voiding, tolerating oral intake and has good pain control. Her blood pressures are satisfactory. Plan is for discharge home. Clinical diagnosis this hospitalization with repeat delivery at 38 weeks gestation secondary diagnoses are previous C-sections x2, preeclampsia, PIH Operation procedure include monitoring, spinal analgesia, repeat patient was given appropriate discharge instructions. Discharge medications are Percocet Motrin and Colace LORETTA RIVERA MD Apr 22, 2022 08:37
[2022-04-22 10:00] VITALS: BP 140/78
[2022-04-22] MEDS: DOCUSATE SODIUM 100 MG (COLACE) CAP PO SCH (10:02)
--- NOTE | 2022-04-24 14:44 | Anesthesia-Regional Post-Op ---
Regional Patient Condition Mental Status: Alert, Oriented x3 Circulation: Same as Pre-Op Headache: Absent Sensation: Full Recovery Motor Block: Absent Post Op Complications Complications None Follow Up Care/Instructions Patient Instructions None needed. Anesthesia/Patient Condition Patient is doing well, no complaints, stable vital signs, no apparent adverse anesthesia problems. No complications reported per nursing. ISRAEL CHAWLA CRNA Apr 24, 2022 14:44
== END 2022-04-22 11:10 | disposition home or self-care (01) | DRG 788 ==
LOC: LDRP 14:12 → WSo 14:12 → LDRP 19:00
PROVIDERS: ADMIT Obstetrics & Gynecology; ATTEND Obstetrics & Gynecology
PROC: 10D00Z1 Extraction of Products of Conception, Low, Open Approach (ICD-10-PCS; principal; 2022-04-20 12:35)
DX: O34.211 Maternal care for low transverse scar from previous cesarean delivery (principal); Z37.0 Single live birth; Z3A.38 38 weeks gestation of pregnancy; O14.14 Severe pre-eclampsia complicating childbirth; O13.4 Gestational [pregnancy-induced] hypertension without significant proteinuria, complicating childbirth; O40.3XX0 Polyhydramnios, third trimester, not applicable or unspecified
CPT/HCPCS: 36415; 80053; 83615; 85025; 86850; 86900; 86901; 90707; 94664

== ENCOUNTER → 2022-04-19 | Outpatient (CLI) | payer BC | LOC: LABNPT 12:56 | PROVIDERS: ATTEND Obstetrics & Gynecology | DX: O13.9 Gestational [pregnancy-induced] hypertension without significant proteinuria, unspecified trimester (principal); Z3A.00 Weeks of gestation of pregnancy not specified | CPT/HCPCS: 82570; 84156 ==

== ENCOUNTER 2022-05-27 18:31 | Emergency (ER) | payer BC ==
[~2022-05-27] VITALS: Ht 170 cm; Wt 85.0 kg
[2022-05-27 18:47] VITALS: BP 145/90
--- NOTE | 2022-05-27 18:59 | ED Integumentary General ---
General Chief Complaint: (<6 weeks) Stated Complaint: SCAR BLEEDING Nursing Triage Note: PT STATES HAVING A C SECTION April BY MARINA MANZO TODAY OF BLEEDING FROM THE INCISION. ONE SMALL AREA OF CONCERN NOTED AT TRIAGE WITH SCANT DRAINAGE. Source: patient Exam Limitations: no limitations History of Present Illness Date Seen by Provider: May 27, 2022 Time Seen by Provider: 18:57 Initial Comments Patient is a 36-year-old female presents ED with bleeding from her surgical site. She states she got up this evening and noticed some bright red blood. Bleeding controlled direct pressure. She states she has been cleared to do activities. She had a first part of April. She denies of any abdominal pain, pain with urination, vaginal bleeding, nausea, vomiting, diarrhea. Area is superficial on the surgical site. No purulent drainage Allergies and Home Medications Allergies Coded Allergies: No Known Drug Allergies (Unverified , 07/05/19) Patient Home Medication List Home Medication List Reviewed: Yes Docusate Sodium (Colace) 100 Mg Capsule, 100 MG PO BID Prescribed by: LORETTA ZHANG on 07/18/19 1145 Ibuprofen (Ibuprofen) 800 Mg Tablet, 800 MG PO Q6H PRN for PAIN Prescribed by: LORETTA ZHANG on 07/18/19 1145 Oxycodone HCl/Acetaminophen (Oxycodone-Acetaminophen 10-325) 1 Each Tablet, 1 TAB PO Q4H PRN for PAIN-MODERATE Prescribed by: LORETTA ZHANG on 07/18/19 1145 Whh354/FA/Omega3/Dha/Fish Oil ( Gummies) 1 Each Tab.chew, 1 EACH PO DAILY, (Reported) Entered as Reported by: ANGELIQUE ABBASI on 07/05/19 1209 Pseudoephedrine HCl (Sudafed) 30 Mg Tablet, 30 MG PO Q6H Prescribed by: LORETTA ZHANG on 07/19/19 3523 Review of Systems Review of Systems Constitutional: No chills, No diaphoresis EENTM: No ear pain, No blurred vision Respiratory: No cough, No dyspnea on exertion Cardiovascular: No chest pain, No palpitations Gastrointestinal: No abdominal pain, No diarrhea, No nausea, No vomiting Genitourinary: No decreased output, No discharge Expected Date of Delivery: Apr 20, 2022 Musculoskeletal: No back pain, No joint pain Skin: change in color All Other Systems Reviewed Negative Unless Noted: Yes Past Xrxkqaj-Xllfpr-Xdmcyl Hx Patient Social History Tobacco Use?: No Substance use?: No Alcohol Use?: No Seasonal Allergies Seasonal Allergies: No Past Medical History Surgery/Hospitalization HX: C SECTION [facility]IL 20/2022, CYST REMOVAL, D&C Surgeries: Yes (OVARIAN CYSTECTOMY, D&C) Respiratory: No Currently Using CPAP: No Currently Using BIPAP: No Cardiac: No Neurological: No Expected Date of Delivery: Apr 20, 2022 Reproductive Disorders: Yes Female Reproductive Disorders: Polycystic Ovarian Dis HIV/AIDS: No Genitourinary: No Gastrointestinal: No Musculoskeletal: No Endocrine: Yes (GESTATIONAL DIABETES) HEENT: Yes (CONTACTS/GLASSES) Loss of Vision: Denies Hearing Impairment: Denies Cancer: No Psychosocial: No Integumentary: No Blood Disorders: No Adverse Reaction/Blood Tranf: No (N/A) Family Medical History Diabetes mellitus (,parents) FH: bipolar disorder (mother) Physical Exam Vital Signs Vital Signs - First Documented 05/27/22 18:47 Temp 36.6 Pulse 94 Resp 18 B/P (MAP) 145/90 (108) Pulse Ox 100 O2 Delivery Room Air Capillary Refill : Less Than 3 Seconds General Appearance: WD/WN, no apparent distress HEENT: PERRL/EOMI, normal ENT inspection, TMs normal Neck: non-tender, full range of motion, supple, normal inspection Cardiovascular: regular rate, rhythm, no edema, no gallop, no JVD Respiratory: chest non-tender, lungs clear, normal breath sounds, no respiratory distress Gastrointestinal: normal bowel sounds, non tender, soft, no organomegaly Back: normal inspection, no CVA tenderness Extremities: normal range of motion, non-tender, normal inspection, no pedal edema Neurologic/Psychiatric: protective signal repairer II-XII nml as tested, no motor/sensory deficits, alert, normal mood/affect, oriented x 3 Skin: normal color, warm/dry, other (Very small superficial wound dehiscence noted to her scar. No bleeding, purulent drainage, tenderness to palpate or function mass) Progress/Results/Core Measures Results/Orders Vital Signs/I&O 05/27/22 05/27/22 18:47 19:01 Temp 36.6 Pulse 94 Resp 18 B/P (MAP) 145/90 (108) Pulse Ox 100 O2 Delivery Room Air Room Air Blood Pressure Mean: 108 Departure Communication (PCP) Very small localized wound dehiscence that is superficial on the surg ical site to the lower abdomen. Less than 1 cm. No purulent drainage. No evidence suggesting infection. No tenderness. She has no other complaints. Discussed Neosporin topical twice a day. Discussed wound care. If any worsening symptoms return back to ED for further evaluation. Impression Primary Impression: Wound dehiscence Disposition: HOME, SELF-CARE Condition: Stable Departure-Patient Inst. Decision time for Depature: 18:58 [address]errals: [facility] [place] NO,LOCAL PHYSICIAN (PCP) Primary Care Physician Patient Instructions: Wound Dehiscence (DC) VIRGIL MARTINEZ May 27, 2022 18:59
== END 2022-05-27 19:03 | disposition home or self-care (01) ==
LOC: EDUNIT# 18:31 → ER 18:33
DX: T81.33XA Disruption of traumatic injury wound repair, initial encounter (principal); Z28.310 Unvaccinated for COVID-19
CPT/HCPCS: 99281

== ENCOUNTER 2022-09-01 19:41 | Emergency (ER) | payer OTHER ==
[2022-09-01 19:49] VITALS: BP 147/90
--- NOTE | 2022-09-01 20:30 | ED EENT ---
History of Present Illness General Chief Complaint: Oral/Throat Problems Stated Complaint: SWOLLEN TONSILS,HARD TO SWALLOW,WHITE SPOTS THROAT Nursing Triage Note: PT AMBULATORY INTO ER FROM HOME WITH COMPLAINT OF SORE THROAT/WHITE PATCHES SINCE YESTERDAY. PT STATES THAT SHE PLANNED TO GO TO URGENT CARE TOMORROW, BUT SWALLOWING IS GETTING HARDER AND IT HURTS TO SWALLOW. Source: patient History of Present Illness Date Seen by Provider: Sep 01, 2022 Time Seen by Provider: 20:08 Initial Comments PT ARRIVES VIA POV FROM HOME C/O RUNNY NOSE/NASAL CONGESTION FOR THE LAST FEW DAYS C/O SORE THROAT SINCE YESTERDAY NO FEVER NO DIFFICULTY BREATHING HURTS TO SWALLOW, BUT IS ABLE TO SWALLOW LIQUIDS AND FOOD NO COUGH HAS NOT SOUGHT CARE UNTIL TODAY HAS NOT TAKEN ANYTHING FOR SYMPTOMS PT IS NOT COVID OR FLU VACCINATED DENIES ANY MEDICAL PROBLEMS GETS SORE THROAT ABOUT ONCE A YEAR, HAS BEEN AT LEAST A YEAR SINCE LAST EPISODE DENIES ANY OTHER MEDICAL PROBLEMS LMP 08/09-08/13/22. NORMAL, NO CONTROL PCP: NONE Allergies and Home Medications Allergies Coded Allergies: No Known Drug Allergies (Unverified , 07/05/19) Patient Home Medication List Home Medication List Reviewed: Yes Docusate Sodium (Colace) 100 Mg Capsule, 100 MG PO BID Prescribed by: LORETTA ZHANG on 07/18/19 1145 Ibuprofen (Ibuprofen) 800 Mg Tablet, 800 MG PO Q6H PRN for PAIN Prescribed by: LORETTA ZHANG on 07/18/19 1145 Oxycodone HCl/Acetaminophen (Oxycodone-Acetaminophen 10-325) 1 Each Tablet, 1 TAB PO Q4H PRN for PAIN-MODERATE Prescribed by: LORETTA ZHANG on 07/18/19 1145 Penicillin V Potassium (Penicillin V Potassium) 500 Mg Tablet, 500 MG PO QID Prescribed by: KIKE COLEMAN on 09/01/222125 Igc414/FA/Omega3/Dha/Fish Oil ( Gummies) 1 Each Tab.chew, 1 EACH PO DAILY, (Reported) Entered as Reported by: ANGELIQUE ABBASI on 07/05/19 1209 Prednisone (Prednisone) 20 Mg Tab, 40 MG PO DAILY Prescribed by: KIKE COLEMAN on 09/01/222125 Pseudoephedrine HCl (Sudafed) 30 Mg Tablet, 30 MG PO Q6H Prescribed by: LORETTA ZHANG on 07/19/19 0753 Review of Systems Review of Systems Constitutional: no symptoms reported Eyes: No Symptoms Reported Ears: No Symptoms Reported Nose: see HPI, congestion Mouth: no symptoms reported Throat: see HPI, pain, swelling; denies discharge, denies neck stiffness, denies hoarse, denies aphonia, denies muffled; painful swallowing; denies diffic ulty with fluids Respiratory: no symptoms reported Cardiovascular: no symptoms reported Gastrointestinal: no symptoms reported LMP: Aug 09, 2022 Musculoskeletal: no symptoms reported Skin: no symptoms reported Neurological: No Symptoms Reported Hematologic/Lymphatic: No Symptoms Reported Immunological/Allergic: no symptoms reported Past Qwtuiyb-Xbaavt-Hsfzjq Hx Patient Social History Tobacco Use?: No Use of E-Cig and/or Vaping dev: No Substance use?: No Alcohol Use?: No Pt feels they are or have been: No Immunizations Up To Date Influenza Vaccine Up-to-Date: No; Not Current Seasonal Allergies Seasonal Allergies: No Past Medical History Surgery/Hospitalization HX: C SECTION APRIL 20/2022, OVARIAN CYST REMOVAL, D&C Surgeries: Yes (OVARIAN CYSTECTOMY, D&C) Section Respiratory: No Currently Using CPAP: No Currently Using BIPAP: No Cardiac: No Neurological: No : No Reproductive Disorders: Yes Female Reproductive Disorders: Polycystic Ovarian Dis HIV/AIDS: No Genitourinary: No Gastrointestinal: No Musculoskeletal: No Endocrine: Yes (GESTATIONAL DIABETES) HEENT: Yes (CONTACTS/GLASSES) Tonsilitis Loss of Vision: Denies Hearing Impairment: Denies Cancer: No Psychosocial: No Integumentary: No Blood Disorders: No Adverse Reaction/Blood Tranf: No (N/A) Family Medical History Diabetes mellitus (,parents) FH: bipolar disorder (mother) Physical Exam Vital Signs Vital Signs - First Documented 09/01/22 19:49 Temp 37.1 Pulse 110 Resp 16 B/P (MAP) 147/90 (109) Pulse Ox 99 O2 Delivery Room Air Height, Weight, BMI Height: 5'6.00" Weight: 230lbs. 0.8oz. 104.947322wh; 29.00 BMI Method:Stated General Appearance: WD/WN, no apparent distress, other (DOES NOT APPEAR ILL OR TO BE IN ANY DISCOMFORT OR DISTRESS) Eyes: bilateral eye normal inspection, bilateral eye PERRL, bilateral eye EOMI Ears: bilateral ear auricle normal, bilateral ear canal normal, bilateral ear TM normal Nose: normal inspection Mouth/Throat: No mandibular swelling, No maxillary swelling; tonsillar exudate, tonsillar swelling; No trismus, No uvula swelling, No voice changes; other (TONSILS +2/4 IN SIZE, ERYTHEMATOUS WITH EXTENSIVE EXUDATE, NO EVIDENCE OF ABSCESS OR AIRWAY COMPROMISE) Neck: non-tender, full range of motion, supple, lymphadenopathy (R) (ANTERIOR), lymphadenopathy (L) (ANTERIOR) Cardiovascular: normal peripheral pulses, regular rate, rhythm, no murmur Respiratory: normal breath sounds Gastrointestinal: soft, no organomegaly Neurologic/Psychiatric: balance and hairspring assembler II-XII nml as tested, no motor/sensory deficits, alert, normal mood/affect, oriented x 3 Skin: normal color, warm/dry; No rash Progress/Results/Core Measures Results/Orders Lab Results Laboratory Tests Test 09/01/22 19:34 09/01/22 20:21 Range/Units Group A Streptococcus Screen POSITIVE H NEGATIVE Influenza Type A (RT-PCR) Not Detected Not Detecte Influenza Type B (RT-PCR) Not Detected Not Detecte SARS-CoV-2 RNA (RT-PCR) Not Detected Not Detecte My Orders Orders - KIKE COLEMAN DO Rapid Strep A Screen (09/01/22 20:16) Covid 19 Inhouse Test (09/01/22 20:16) Influenza A And B By Pcr (09/01/22 20:16) Isolation Central Supply Req (09/01/22 20:16) Penicillin G Benzathine Inject (Bicillin (09/01/22 21:30) Methylprednisolone Sod Succ (Solu-Medrol (09/01/22 21:30) Medications Given in ED Current Medications Medications Dose Ordered Sig/Ryder Route Start Time Stop Time Status Last Admin Dose Admin Methylprednisolone Sodium Succinate 125 mg ONCE ONCE IM 09/01/22 21:30 09/01/22 21:31 DC 09/01/22 21:36 125 MG Penicillin G Benzathine 1,200,000 unit ONCE ONCE IM 09/01/22 21:30 09/01/22 21:31 DC 09/01/22 21:36 1,200,000 UNIT Vital Signs/I&O 09/01/22 19:49 Temp 37.1 Pulse 110 Resp 16 B/P (MAP) 147/90 (109) Pulse Ox 99 O2 Delivery Room Air Blood Pressure Mean: 109 Progress Progress Note : Progress Note PPE WORN COVID, FLU AND STREP TESTING DONE GIVEN PENICILLIN IM AND SOLU-MEDROL IM Departure Impression Primary Impression: Strep pharyngitis Disposition: HOME, SELF-CARE Condition: Stable Departure-Patient Inst. Decision time for Depature: 21:25 Referrals: NO,LOCAL PHYSICIAN (PCP/Family) Primary Care Physician Patient Instructions: Strep Throat ED Add. Discharge Instructions: FREQUENT SALT WATER GARGLES TYLENOL 1 GRAM AND MOTRIN 800 MG EVERY 6 HOURS NEEDED FOR PAIN OR FEVER LOTS OF CLEAR LIQUIDS FOLLOW UP WITH OF [facility] IN 3-4 DAYS IF NO BETTER, RETURN TO ER IF WORSE All discharge instructions reviewed with patient and/or family. Voiced understanding. Scripts Prednisone (Prednisone) 20 Mg Tab 40 MG PO DAILY, #6 TAB 0 Refills Prov: KIKE COLEMAN DO 09/01/22 Penicillin V Potassium (Penicillin V Potassium) 500 Mg Tablet 500 MG PO QID, #40 TAB Prov: KIKE COLEMAN DO 09/01/22 KIKE COLEMAN DO Sep 01, 2022 20:30
[2022-09-01] MEDS ORDERED: PRD20T PO (21:26)
[2022-09-01] MEDS ORDERED: PENI500T PO (21:26)
[2022-09-01] MEDS ORDERED: methylPREDNISolone 125 MG (Solu-MEDROL) VIAL IM ONE (21:30)
[2022-09-01] MEDS ORDERED: PEN G BENZ (BICILLIN LA) 1.2 M UN/2 ML SYR IM ONE (21:30)
== END 2022-09-01 21:49 | disposition home or self-care (01) ==
LOC: EDUNIT# 19:41 → ER 19:44
DX: J02.0 Streptococcal pharyngitis (principal); Z20.828 Contact with and (suspected) exposure to other viral communicable diseases; Z28.310 Unvaccinated for COVID-19
CPT/HCPCS: 87430; 87636; 96372; 99284